=== PATIENT | female | born 1960 | race Caucasian/White ===

== ENCOUNTER 2017-12-24 08:42 | Day surgery (SDC) | payer BC ==
[~2017-12-24 08:42] MED LIST: Lactated Ringers 1,000 ML IV SCH; Sodium Chloride 0.9% 10 ML Syringe FLUSH PRN; Sodium Chloride 0.9% 2.5 ML Syringe FLUSH PRN
--- NOTE | 2017-12-24 09:52 | PCM.PREANE ---
Preanesthetic Assessment - Anesthesia/Transfusion/Family Hx Anesthesia History: Prior Anesthesia Without Reaction Family History of Anesthesia Reaction: No Transfusion History: No Prior Transfusion(s) Intubation History: Unknown - Review of Systems General: No Symptoms Pulmonary: No Symptoms Cardiovascular: No Symptoms Gastrointestinal: No Symptoms Neurological: No Symptoms Other: Reports: None - Physical Assessment O2 Sat by Pulse Oximetry: 99 Respiratory Rate: 16 Vital Signs: Last Vital Signs Temp 36.4 C 12/24/17 09:46 Pulse 74 12/24/17 09:46 Resp 16 12/24/17 09:46 BP 131/93 H 12/24/17 09:46 Pulse Ox 99 12/24/17 09:46 Height: 1.8 m Weight: 97.069 kg ASA Class: 2 Mental Status: Alert & Oriented x3 Airway Class: Mallampati = 2 Dentition: Reports: Normal Dentition Thyro-Mental Finger Breadths: 3 Mouth Opening Finger Breadths: 3 ROM/Head Extension: Full Lungs: Clear to Auscultation, Normal Respiratory Effort Cardiovascular: Regular Rate, Regular Rhythm - Allergies Allergies/Adverse Reactions: Allergies Allergy/AdvReac Type Severity Reaction Status Date / Time No Known Allergies Allergy Verified 12/20/17 10:36 - Blood Blood Available: No - Anesthesia Plan Pre-Op Medication Ordered: None - Acknowledgements Anesthesia Type Planned: General Anesthesia Pt an Appropriate Candidate for the Planned Anesthesia: Yes Alternatives and Risks of Anesthesia Discussed w Pt/Guardian: Yes Pt/Guardian Understands and Agrees with Anesthesia Plan: Yes PreAnesthesia Questionnaire Other HEENT History: wears glasses/contacts Cardiovascular History: Reports: Hypertension, Other (See Below) (h/o palpitations, varicose veins) Gastrointestinal History: Reports: Chronic Constipation, GERD, Other (See Below ) (h/o fatty liver before gastric sleeve surgery and loss of weight) 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: Endocrine/Metabolic History: Reports: Hypothyroidism, Other (See Below) (h/o hypoglycemic episodes) - Past Surgical History HEENT Surgical History: Reports: Oral Surgery Other HEENT Surgeries/Procedures: wisdom teeth Cardiovascular Surgical History: Reports: Varicose GI Surgical History: Reports: Bariatric Procedure Female Surgical History: Reports: Breast Biopsy, Tubal Ligation Endocrine Surgical History: Reports: Thyroidectomy - SUBSTANCE USE Smoking Status *Q: Never Smoker Second Hand Smoke Exposure: No Recreational Drug Use History: No - HOME MEDS Home Medications: Home Meds amLODIPine [Norvasc] 5 mg PO BEDTIME 07/08/15 [History] Cholecalciferol (Vitamin D3) [Vitamin D3] 1,000 unit PO DAILY 12/20/17 [History] Cyanocobalamin (Vitamin B12) [Vitamin B12] 1,000 mcg PO DAILY 12/20/17 [History] Iron 1 tab PO DAILY 12/20/17 [History] Levothyroxine Sodium [Synthroid] 150 mcg PO QAM 12/20/17 [History] Magnesium 1 tab PO DAILY 12/20/17 [History] Multivitamin [Multiple Vitamins] 1 tab PO DAILY 12/20/17 [History] Potassium 2 tab PO BID 12/20/17 [History] Vitamin B6-pyridOXINE [Vitamin B6] 25 mg PO DAILY 12/20/17 [History] - CURRENT (IN HOUSE) MEDS Current Meds: Current Medications Lactated Ringer's (Ringers, Lactated) 1,000 mls @ 125 mls/hr IV ASDIRECTED NELLIE Last Admin: 12/24/17 09:25 Dose: 125 mls/hr Sodium Chloride (Saline Flush) 10 ml FLUSH ASDIRECTED PRN PRN Reason: Keep Vein Open Sodium Chloride (Saline Flush) 2.5 ml FLUSH ASDIRECTED PRN PRN Reason: Keep Vein Open
[2017-12-24] MEDS ORDERED: Propofol 200 MG/20 ML SDV ONE ×2 (11:31→12:58)
[2017-12-24] MEDS ORDERED: Midazolam 1 MG/ML 2 ML SDV ONE (11:31)
[2017-12-24] MEDS ORDERED: fentaNYL 100 MCG/2 ML SDV ONE ×2 (11:33→13:18)
[2017-12-24] MEDS ORDERED: Dexamethasone 4 MG/ML 5 ML MDV ONE (12:57)
[2017-12-24] MEDS ORDERED: Ondansetron 4 MG/2 ML SDV ONE (12:57)
[2017-12-24] MEDS ORDERED: diphenhydrAMINE 50 MG/ML SDV ONE (12:57)
--- NOTE | 2017-12-24 13:56 | PCM.OPNOTE ---
- General Post-Op/Procedure Note Date of Surgery/Procedure: 12/24/17 Operative Procedure(s): Hysteroscopy,polypectomy with Dilataion and curettage Findings: Endometrial polyp located at the fundus. Thin endometrial lining otherwise Pre Op Diagnosis: Postmenopausal bleeding. Endometrial polyp Post-Op Diagnosis: Same Anesthesia Technique: General ET Tube Primary Surgeon: Ann Gonzalez EBL in mLs: 10 Complications: None Condition: Good
--- NOTE | 2017-12-24 13:59 | PCM.POSTAN ---
POST ANESTHESIA ASSESSMENT - MENTAL STATUS Mental Status: Alert, Oriented - RESPIRATORY Respiratory Status: Respiratory Rate WNL, Airway Patent, O2 Saturation Stable - CARDIOVASCULAR CV Status: Pulse Rate WNL, Blood Pressure Stable - GASTROINTESTINAL GI Status: No Symptoms - PAIN Pain Score: 2 - POST OP HYDRATION Hydration Status: Adequate & Stable
--- NOTE | 2017-12-24 14:54 | PCM48HPAN ---
Post Anesthesia Note - EVALUATION WITHIN 48HRS OF ANESTHETIC Vital Signs in Normal Range: Yes Patient Participated in Evaluation: Yes Respiratory Function Stable: Yes Airway Patent: Yes Cardiovascular Function Stable: Yes Hydration Status Stable: Yes Pain Control Satisfactory: Yes Nausea and Vomiting Control Satisfactory: Yes Mental Status Recovered: Yes Resp Rate: 14 - COMMENTS/OBSERVATIONS Free Text/Narrative:: Pt still groggy, but awake and answering questions. No pain or nausea noted at this time.
[2017-12-24 14:59] VITALS: BP 118/70
--- NOTE | 2017-12-25 00:31 | OR ---
SURGEON: Ann Gonzalez MD DATE OF PROCEDURE: 12/24/2017 PREOPERATIVE DIAGNOSES: 1. Postmenopausal bleeding. 2. Endometrial polyp. POSTOPERATIVE DIAGNOSES: 1. Postmenopausal bleeding. 2. Endometrial polyp. ANESTHESIA: General endotracheal. ESTIMATED BLOOD LOSS: Minimal. COMPLICATIONS: None. DISPOSITION: Stable to recovery room. PATHOLOGY: Endometrial polyp Endometrial curettings Endocervical curettings. FINDINGS: Mobile anteverted uterus, sounded to 7 cm. No cervical lesions and n adnexal masses palpable. Hysteroscopic findings revealed a solitary fundal endometrial polyp. The endometrium was otherwise atrophic in appearance. Both fallopian tube ostia were visualized. BRIEF HISTORY: The patient is a 57-year-old lady, who presented with postmenopausal bleeding. Sonohysterogram showed an endometrial polyp and office endometrial biopsy, though scanty was benign.I reviewed the sonohysterogram findings with the patient and recommended to proceed with a hysteroscopy with polypectomy. The patient accepted the recommendation. Risks of the procedure were discussed with the patient in details including, but not limited to bleeding, infection, injury to the uterus, cervix, and the surrounding organs. She accepted and signed an appropriate consent. DESCRIPTION OF PROCEDURE: The patient was taken to the operating room, where she underwent induction of general anesthesia without difficulty. After adequate level of anesthesia, she was placed in dorsal lithotomy position, prepped and draped in the usual sterile fashion for vaginal procedure. The bladder was emptied. Time-out was held. Examination under anesthesia revealed the aforementioned findings. A bivalve speculum was placed in the vagina and anterior lip of the cervix was grabbed with an Allis clamp. The uterine cavity was sounded to a depth of 7 cm. ECC was performed and the sample was collected with the Cytobrush. The cervical os was then dilated serially up to a #6 Hegar dilator and a 6.5 mm MyoSure. Operative hysteroscope was inserted into the uterine cavity under direct visualization using normal saline as a distention media. Upon entering the uterine cavity, the aforementioned pathology was noted. The outflow channel of the MyoSure device was then removed under direct visualization and the MyoSure tissue retrieval device was placed through this channel. The retrieval device was then aligned along the polyp, activated and the polyp was resected easily and completely. Survey of the uterine cavity post resection reveals no uterine wall injury. The MyoSure was then removed from the cavity. Gentle endometrial curetting was then performed. Once this was completed, all the instruments were then removed from the patient's vagina and the area in the cervix on which the Allis clamp was placed was found to be hemostatic. All sponge and instrument counts were correct. Input and output of the normal saline were [facility]. Please refer to the nursing chart for accurate measurement. The patient was taken to the recovery room in stable condition. DEEDEE / ELEUTERIO /[id number] MTDD
== END 2017-12-24 15:21 | disposition home or self-care (01) ==
LOC: MW.SDS 08:42
PROVIDERS: ATTEND Obstetrics & Gynecology
DX: N84.0 Polyp of corpus uteri (principal); I10 Essential (primary) hypertension; E03.9 Hypothyroidism, unspecified; Z79.899 Other long term (current) drug therapy; Z98.84 Bariatric surgery status
CPT/HCPCS: 36415; 58558; 85027; 86850; 86900; 86901; J1100; J1200; J2250; J2405; J3010; J7120; 00952; 88305; J2704

== ENCOUNTER 2020-03-20 19:19 | Emergency (ER) | payer BC ==
[2020-03-20 19:44] VITALS: PULSE 78
[2020-03-20] MEDS ORDERED: Acetaminophen 500 MG Tab PO ONE (19:48)
[2020-03-20] MEDS ORDERED: Ibuprofen 400 MG Tab PO ONE (19:48)
--- NOTE | 2020-03-20 19:51 | EDM.PDOC ---
ED HPI GENERAL MEDICAL PROBLEM - General Chief Complaint: Genitourinary Problem Stated Complaint: POSSIBLE UTI Time Seen by Provider: 03/20/20 19:20 Source of Information: Reports: Patient History Limitations: Reports: No Limitations - History of Present Illness INITIAL COMMENTS - FREE TEXT/NARRATIVE: 59-year-old female with a past medical history of hypertension and hypothyroidism presenting with dysuria. 2-day history of dysuria, urinary frequency, incomplete voiding, and right flank pain. Symptoms similar to prior UTIs but she does not typically have flank pain with them. Right flank pain is constant, nonradiating, nothing makes it better or worse, described as "sharp". Right Flank Pain Score (Numeric/FACES): 7 - Related Data Allergies Allergy/AdvReac Type Severity Reaction Status Date / Time No Known Allergies Allergy Verified 03/20/20 19:38 Home Meds: Home Meds amLODIPine [Norvasc] 5 mg PO BEDTIME 07/08/15 [History] Multivitamin [Multiple Vitamins] 1 tab PO DAILY 12/20/17 [History] Levothyroxine Sodium [Synthroid] 137 mcg PO DAILY 03/20/20 [History] cephALEXin [Keflex] 500 mg PO QID 14 Days #56 capsule 03/20/20 [Rx] Past Medical History Other HEENT History: wears glasses/contacts Cardiovascular History: Reports: Hypertension, Other (See Below) (h/o palpitations, varicose veins) Gastrointestinal History: Reports: Chronic Constipation, GERD, Other (See Below ) (h/o fatty liver before gastric sleeve surgery and loss of weight) 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: Endocrine/Metabolic History: Reports: Hypothyroidism, Other (See Below) (h/o hypoglycemic episodes) - Past Surgical History HEENT Surgical History: Reports: Oral Surgery Other HEENT Surgeries/Procedures: wisdom teeth Cardiovascular Surgical History: Reports: Varicose GI Surgical History: Reports: Bariatric Procedure Female Surgical History: Reports: Breast Biopsy, Tubal Ligation Endocrine Surgical History: Reports: Thyroidectomy Social & Family History - Family History Family Medical History: Noncontributory ED ROS GENERAL - Review of Systems Review Of Systems: See Below Constitutional: Reports: No Symptoms. Denies: Fever, Chills HEENT: Reports: No Symptoms Respiratory: Reports: No Symptoms. Denies: Shortness of Breath Cardiovascular: Reports: No Symptoms. Denies: Chest Pain Endocrine: Reports: No Symptoms. Denies: Polyuria GI/Abdominal: Reports: No Symptoms. Denies: Abdominal Pain, Nausea, Vomiting : Reports: No Symptoms, Dysuria, Flank Pain, Frequency, Pain, Urgency Musculoskeletal: Reports: No Symptoms. Denies: Back Pain Skin: Reports: No Symptoms. Denies: Rash Neurological: Reports: No Symptoms. Denies: Headache Psychiatric: Reports: No Symptoms Hematologic/Lymphatic: Reports: No Symptoms Immunologic: Reports: No Symptoms ED EXAM, RENAL/ - Physical Exam Exam: See Below Text/Narrative:: Vital signs reviewed. Nursing notes reviewed. Constitutional: Awake, alert, non-distressed. Head: Normocephalic, atraumatic. Eyes: EOMI, conjunctiva normal, no discharge, no scleral icterus. Ears, Nose, Throat: External ears and ears normal, moist oral mucosa. Cardiovascular: 2+ radial pulse, capillary refill less than 2 seconds. Pulmonary: normal work of breathing, no accessory muscle use. Abdomen/GI: Soft, nontender, nondistended, no guarding or rigidity, no masses. No CVA tenderness. Musculoskeletal: No deformities. Integumentary: Appropriate color for ethnicity, warm, dry, no pallor or jaundice , no rash. Neurologic: Alert, answering questions appropriately, normal speech, no facial droop, moving all extremities well. Psychiatric: Appropriate mood and affect, normal thought process. Course - Vital Signs Text/Narrative:: 59-year-old female past medical history of hypertension and hypothyroidism presenting with dysuria. Patient hemodynamically stable, afebrile, well- appearing, looks nontoxic. Differential diagnosis includes but is not limited to: UTI, pyelonephritis, kidney stone, acute hepatitis, cholecystitis, biliary colic, cholangitis, mesenteric ischemia, bowel obstruction, perforation, ileus, epiploic appendagitis, AAA, musculoskeletal strain/sprain, zoster, etc. 2038: CBC shows normal cell lines. Electrolytes and renal function unremarkable. LFTs show mild alkaline phosphatase elevation, normal AST and ALT. Urinalysis appears infected with positive nitrites, moderate leukocyte esterase, large blood. Urine culture ordered. Awaiting CT abdomen/pelvis. 2124: Resting comfortably, declines any analgesic pain medications. Awaiting radiology read of CT scan. Anticipate discharge home with treatment for pyelonephritis. 2205: CT abdomen/pelvis report just returned, no acute findings noted by radiologist. No evidence of kidney stone, hydronephrosis, appendicitis, or any other intra-abdominal abnormality. Patient is stable to discharge home with outpatient primary care follow-up. 10- day course of cephalexin will be prescribed. Strict emergency department return precautions were provided, patient indicated understanding. All questions were answered prior to departure. Discharged in good condition. Last Recorded V/S: Last Vital Signs Temp 36.2 C 03/20/20 22:00 Pulse 78 03/20/20 22:00 Resp 17 03/20/20 22:00 BP 150/101 H 03/20/20 22:00 Pulse Ox 98 03/20/20 22:00 - Orders/Labs/Meds Orders: Active Orders 24 hr Category Date Time Status CULTURE URINE [RM] Stat Lab 03/20/20 19:40 Received Labs: Laboratory Tests 03/20/20 03/20/20 03/20/20 Range/Units 19:40 19:40 20:01 WBC 6.49 (4.0-11.0) K/uL RBC 5.04 (4.30-5.90) M/uL Hgb 14.1 (12.0-16.0) g/dL Hct 43.1 (36.0-46.0) % MCV 85.5 (80.0-98.0) fL MCH 28.0 (27.0-32.0) pg MCHC 32.7 (31.0-37.0) g/dL RDW Std Deviation 39.1 (28.0-62.0) fl RDW Coeff of Melchor 13 (11.0-15.0) % Plt Count 184 (150-400) K/uL MPV 10.30 (7.40-12.00) fL Neut % (Auto) 63.1 (48.0-80.0) % Lymph % (Auto) 20.2 (16.0-40.0) % [place] % (Auto) 7.9 (0.0-15.0) % Eos % (Auto) 8.5 H (0.0-7.0) % Baso % (Auto) 0.3 (0.0-1.5) % Neut # (Auto) 4.1 (1.4-5.7) K/uL Lymph # (Auto) 1.3 (0.6-2.4) K/uL [place] # (Auto) 0.5 (0.0-0.8) K/uL Eos # (Auto) 0.6 (0.0-0.7) K/uL Baso # (Auto) 0.0 (0.0-0.1) K/uL Nucleated RBC % 0.0 /100WBC Nucleated RBCs # 0 K/uL Sodium (136-145) mmol/L Potassium (3.5-5.1) mmol/L Chloride (98-107) mmol/L Carbon Dioxide (21.0-32.0) mmol/L BUN (7.0-18.0) mg/dL Creatinine (0.6-1.0) mg/dL Est Cr Clr Drug Dosing Estimated GFR (MDRD) ml/min Glucose (74-106) mg/dL Calcium (8.5-10.1) mg/dL Total Bilirubin (0.2-1.0) mg/dL AST (15-37) IU/L ALT (14-63) IU/L Alkaline Phosphatase (46-116) U/L Total Protein (6.4-8.2) g/dL Albumin (3.4-5.0) g/dL Globulin (2.6-4.0) g/dL Albumin/Globulin Ratio (0.9-1.6) Urine Color YELLOW Urine Appearance CLOUDY Urine pH 7.0 (5.0-8.0) Ur Specific [place] 1.025 (1.001-1.035) Urine Protein 100 H (NEGATIVE) mg/dL Urine Glucose (UA) NEGATIVE (NEGATIVE) mg/dL Urine Ketones NEGATIVE (NEGATIVE) mg/dL Urine Occult Blood LARGE H (NEGATIVE) Urine Nitrite POSITIVE H (NEGATIVE) Urine Bilirubin NEGATIVE (NEGATIVE) Urine Urobilinogen 0.2 (<2.0) EU/dL Ur Leukocyte Esterase MODERATE H (NEGATIVE) Urine RBC 45-50 (0-2/HPF) Urine WBC 110-120 (0-5/HPF) Ur Epithelial Cells FEW (NONE-FEW) Urine Bacteria FEW (NEGATIVE) Urine HCG, Qual NEGATIVE (NEGATIVE) 03/20/20 Range/Units 20:01 WBC (4.0-11.0) K/uL RBC (4.30-5.90) M/uL Hgb (12.0-16.0) g/dL Hct (36.0-46.0) % MCV (80.0-98.0) fL MCH (27.0-32.0) pg MCHC (31.0-37.0) g/dL RDW Std Deviation (28.0-62.0) fl RDW Coeff of Melchor (11.0-15.0) % Plt Count (150-400) K/uL MPV (7.40-12.00) fL Neut % (Auto) (48.0-80.0) % Lymph % (Auto) (16.0-40.0) % [place] % (Auto) (0.0-15.0) % Eos % (Auto) (0.0-7.0) % Baso % (Auto) (0.0-1.5) % Neut # (Auto) (1.4-5.7) K/uL Lymph # (Auto) (0.6-2.4) K/uL [place] # (Auto) (0.0-0.8) K/uL Eos # (Auto) (0.0-0.7) K/uL Baso # (Auto) (0.0-0.1) K/uL Nucleated RBC % /100WBC Nucleated RBCs # K/uL Sodium 141 (136-145) mmol/L Potassium 4.0 (3.5-5.1) mmol/L Chloride 103 (98-107) mmol/L Carbon Dioxide 28.6 (21.0-32.0) mmol/L BUN 11 (7.0-18.0) mg/dL Creatinine 0.8 (0.6-1.0) mg/dL Est Cr Clr Drug Dosing TNP Estimated GFR (MDRD) > 60.0 ml/min Glucose 103 (74-106) mg/dL Calcium 8.8 (8.5-10.1) mg/dL Total Bilirubin 0.2 (0.2-1.0) mg/dL AST 22 (15-37) IU/L ALT 23 (14-63) IU/L Alkaline Phosphatase 136 H (46-116) U/L Total Protein 7.4 (6.4-8.2) g/dL Albumin 4.1 (3.4-5.0) g/dL Globulin 3.3 (2.6-4.0) g/dL Albumin/Globulin Ratio 1.2 (0.9-1.6) Urine Color Urine Appearance Urine pH (5.0-8.0) Ur Specific [place] (1.001-1.035) Urine Protein (NEGATIVE) mg/dL Urine Glucose (UA) (NEGATIVE) mg/dL Urine Ketones (NEGATIVE) mg/dL Urine Occult Blood (NEGATIVE) Urine Nitrite (NEGATIVE) Urine Bilirubin (NEGATIVE) Urine Urobilinogen (<2.0) EU/dL Ur Leukocyte Esterase (NEGATIVE) Urine RBC (0-2/HPF) Urine WBC (0-5/HPF) Ur Epithelial Cells (NONE-FEW) Urine Bacteria (NEGATIVE) Urine HCG, Qual (NEGATIVE) Meds: Medications Discontinued Medications Generic Name Dose Route Start Last Admin Trade Name Freq PRN Reason Stop Dose Admin Acetaminophen 1,000 mg 03/20/20 19:48 03/20/20 20:08 Tylenol Extra Strength PO 03/20/20 19:49 Not Given ONETIME ONE Ibuprofen 400 mg 03/20/20 19:48 03/20/20 20:07 Motrin PO 03/20/20 19:49 Not Given ONETIME ONE Iopamidol 100 ml 03/20/20 20:56 03/20/20 20:57 Isovue-370 (76%) IVPUSH 03/20/20 20:57 100 ml ONETIME ONE Administration Departure - Departure Time of Disposition: 22:07 Disposition: Home, Self-Care 01 Condition: Good Clinical Impression: Pyelonephritis - Discharge Information *PRESCRIPTION DRUG MONITORING PROGRAM REVIEWED*: Not Applicable *COPY OF PRESCRIPTION DRUG MONITORING REPORT IN PATIENT CAROL: Not Applicable Prescriptions: cephALEXin [Keflex] 500 mg PO QID 14 Days #56 capsule Instructions: Pyelonephritis, Adult Referrals: Kim Carroll DO [Primary Care Provider] - 1 Week (For follow-up of your infection) Forms: ED Department Discharge Additional Instructions: Please take all of your antibiotic medication as prescribed, even if you are feeling better - be sure you finish the entire bottle. You can take over-the- counter Tylenol or Motrin for pain. Follow-up with your doctor in the next week. Return to the emergency department immediately if you develop a fever ( temperature 100.4 or higher), chills, vomiting, severe pain, or if any other symptoms develop that are concerning to you. The following information is given to patients seen in the emergency department who are being discharged to home. This information is to outline your options for follow-up care. We provide all patients seen in our emergency department with a follow-up referral. The need for follow-up, as well as the timing and circumstances, are variable depending upon the specifics of your emergency department visit. If you don't have a primary care physician on staff, we will provide you with a referral. We always advise you to contact your personal physician following an emergency department visit to inform them of the circumstance of the visit and for follow-up with them and/or the need for any referrals to a consulting specialist. The emergency department will also refer you to a specialist when appropriate. This referral assures that you have the opportunity for follow-up care with a specialist. All of these measure are taken in an effort to provide you with optimal care, which includes your follow-up. Under all circumstances we always encourage you to contact your private physician who remains a resource for coordinating your care. When calling for follow-up care, please make the office aware that this follow-up is from your recent emergency room visit. If for any reason you are refused follow-up, please contact the [facility] Emergency Department at and asked to speak to the emergency department charge nurse. If you do not have a primary care physician that is caring for you, you can contact these clinics below to set up an appointment to establish care: [facility] - Primary Care [address] [place] [id number] [facility] [address] [place] [id number] Sepsis Event Note - Evaluation Sepsis Screening Result: No Definite Risk - Focused Exam Vital Signs: Vital Signs Temp Pulse Resp BP Pulse Ox 03/20/20 22:00 36.2 C 78 17 150/101 H 98 03/20/20 19:43 36.4 C 78 20 160/107 H 98 Date Exam was Performed: 03/20/20 Time Exam was Performed: 22:06 - My Orders Last 24 Hours: My Active Orders 03/20/20 19:40 CULTURE URINE [RM] Stat - Assessment/Plan Last 24 Hours: My Active Orders 03/20/20 19:40 CULTURE URINE [] Stat
[2020-03-20 20:26] LABS: BLOOD UREA NITROGEN,BUN 11 mg/dL (7.0-18.0); CARBON DIOXIDE,CO2 28.6 mmol/L (21.0-32.0); CHLORIDE,CL 103 mmol/L (98-107); GLUCOSE RANDOM 103 mg/dL (74-106); SODIUM,NA 141 mmol/L (136-145)
[2020-03-20] MEDS ORDERED: Iopamidol 755 Mg/ML 100 ML Bottle IVPUSH ONE (20:56)
--- NOTE | 2020-03-20 22:02 | CT ---
CT abdomen and pelvis Technique: Multiple axial sections were obtained from above the dome of the diaphragm inferiorly through the pubic symphysis. Intravenous contrast was utilized. No oral contrast has been given. Findings: Visualized lung bases show nothing acute. Liver shows no focal parenchymal abnormality. Spleen size is normal. Adrenal glands show no nodule. Small hiatal hernia is noted. Kidneys show symmetric contrast enhancement. No abnormal calcifications are seen within the kidneys. No ureteral dilatation or ureteral calcification is seen. Aorta shows no aneurysm. No retroperitoneal adenopathy is seen. No mesenteric abnormalities are seen. Appendix is seen which is normal in size. Uterus shows fibroid change. No additional pelvic abnormality is seen. No free fluid or inflammatory change is appreciated. Bone window settings were reviewed which shows mild degenerative apophyseal change within the lower lumbar spine with mild scattered endplate osteophytes throughout the lower thoracic and lumbar spine. Impression: 1. Fibroid change within the uterus. 2. No renal calculi, ureteral dilatation or ureteral stone is seen. 3. Nothing acute is appreciated on CT study of the abdomen and pelvis. Diagnostic code #2 This report was dictated in MDT
[2020-03-20 22:06] VITALS: BP 150/101
== END 2020-03-20 22:13 | disposition home or self-care (01) ==
LOC: MW.ED 19:19
DX: N12 Tubulo-interstitial nephritis, not specified as acute or chronic (principal); I10 Essential (primary) hypertension; E03.9 Hypothyroidism, unspecified; Z79.899 Other long term (current) drug therapy
CPT/HCPCS: 36415; 74177; 80053; 81001; 81025; 85025; 87086; 87088; 87186; 99284; Q9967

== ENCOUNTER 2021-05-07 13:01 | Emergency (ER) | payer BC ==
[2021-05-07] MEDS ORDERED: Sodium Chloride 0.9% 1,000 ML IV ONE (13:29)
--- NOTE | 2021-05-07 13:51 | EDM.PDOC ---
ED HPI GENERAL MEDICAL PROBLEM - General Chief Complaint: General Stated Complaint: DEHYDRATED/DIZZY/WEAK Time Seen by Provider: 05/07/21 13:41 Source of Information: Reports: Patient History Limitations: Reports: No Limitations - History of Present Illness INITIAL COMMENTS - FREE TEXT/NARRATIVE: HISTORY AND PHYSICAL: History of present illness: Patient is a 60-year-old female who presents to the emergency room with complaints of dizziness and concerns of dehydration. She states yesterday she was out in the heat at a festival and did not feel she drank enough water. This morning she had attended [employer] and on her way to work she started to feel dizzy and run down. She states "I have heatstroke... I'm from [place], I know what its like". Patient denies any fever, chills, headache, change in vision, syncope or near syncope. Denies any chest pain, back pain, shortness of breath or cough. Denies any abdominal pain, nausea, vomiting, diarrhea, constipation or dysuria. Has not noted any blood in urine or stool. Patient has been eating and drinking appropriately. Review of systems: As per history of present illness and below otherwise all systems reviewed and negative. Past medical history: As per history of present illness and as reviewed below otherwise noncontributory. Surgical history: As per history of present illness and as reviewed below otherwise noncontributory. Social history: See social history for further information Family history: As per history of present illness and as reviewed below otherwise noncontributory. Physical exam: General: Well developed and well nourished 60 year old black female . Alert and orientated x 3. Nontoxic in appearance and in no acute distress. Vital signs are stable and have been reviewed by me. Nursing notes were reviewed. HEENT: Atraumatic, normocephalic, pupils equal and reactive bilaterally, negative for conjunctival pallor or scleral icterus, mucous membranes moist, TMs normal bilaterally, throat clear, neck supple, nontender, trachea midline. No drooling or trismus noted. No meningeal signs. No hot potato voice noted. Lungs: Clear to auscultation bilaterally. No wheezes, rales, or rhonchi. Chest nontender. Normal work of breathing, no accessory muscles used. Heart: S1S2, regular rate and rhythm without overt murmur, gallops, or rubs. No JVD. No peripheral edema Abdomen: Soft, nondistended, nontender. Normoactive bowel sounds. Negative for masses or costovertebral tenderness. Skin: Intact, warm, dry. No lesions or rashes noted. Hematologic: No petechiae or purpra. Mucosa appropriate color and normal nail bed color and refill. Extremities: Atraumatic, moves all extremities per self without difficulty or deficits, negative for cords or calf pain. Neurovascular unremarkable. Neuro: Awake, alert, oriented. Cranial nerves II through XII unremarkable. Cerebellum unremarkable. Motor and sensory unremarkable throughout. Exam nonfocal. Psychiatric: Mood and affect are appropriate. Normal thought process. Answering questions appropriately. Notes: *This patient was seen and evaluated during the 2019 SARS-CoV-2 novel coronavirus pandemic period. Community viral transmission is ongoing at time of this encounter and the emergency department is operating under pandemic response procedures. Patient is a 60-year-old female who presents to the emergency room with concerns of heatstroke and dehydration. Her physical exam is unremarkable. Patient is agreeable to basic lab work, IV fluids and monitoring while waiting. Lab work is unremarkable. Her vital signs have improved. Patient states she feels much better and would like to be discharged home. I have talked with the patient about today's findings, in addition to providing specific details for plan of care. Reassessment at the time of disposition demonstrates that the patient is in no acute distress. The patient is stable for discharge, counseling was provided and we discussed in great detail signs and symptoms that would prompt them to return to the Emergency Department. Medication, follow up and supportive care measures were reviewed and discussed. Voices understanding and is agreeable to plan of care. Denies any further questions or concerns at this time. Diagnostics: CBC, CMP, Troponin, EKG, UA Therapeutics: IV fluids Prescription: None Impression: Dizziness Plan: 1. You were evaluated today on an emergent basis. Your lab work and EKG are normal. Please take it easy the rest of day. Small frequent meals, increase your oral fluids. 2. You can alternate Tylenol and ibuprofen as needed for pain and fever management. 3. We encourage you to follow up with your primary care provider and/or recommended specialist in the next few days for re-evaluation and further care/management. 4. If your symptoms should worsen, new symptoms develop or any of the signs and symptoms we discussed should arise please return to the emergency room or call 911 (if needed). Definitive disposition and diagnosis as appropriate pending reevaluation and review of above. - Related Data Allergies Allergy/AdvReac Type Severity Reaction Status Date / Time No Known Allergies Allergy Verified 05/07/21 13:10 Home Meds: Home Meds amLODIPine [Norvasc] 5 mg PO BEDTIME 07/08/15 [History] Levothyroxine Sodium [Synthroid] 137 mcg PO DAILY 03/20/20 [History] Past Medical History Other HEENT History: wears glasses/contacts Cardiovascular History: Reports: Hypertension, Other (See Below) Gastrointestinal History: Reports: Chronic Constipation, GERD, Other (See Below) [employer] History: Reports: Endocrine/Metabolic History: Reports: Hypothyroidism, Other (See Below) Hematologic History: Reports: None Immunologic History: Reports: None Oncologic (Cancer) History: Reports: None - Infectious Disease History Infectious Disease History: Reports: Mumps - Past Surgical History HEENT Surgical History: Reports: Oral Surgery Other HEENT Surgeries/Procedures: wisdom teeth Cardiovascular Surgical History: Reports: Varicose GI Surgical History: Reports: Bariatric Procedure Other GI Surgeries/Procedures: gastric sleeve , thyroidectomy Female Surgical History: Reports: Breast Biopsy, Tubal Ligation Endocrine Surgical History: Reports: Thyroidectomy Social & Family History - Family History Family Medical History: No Pertinent Family History - Tobacco Use Tobacco Use Status *Q: Never Tobacco User - Caffeine Use Caffeine Use: Reports: None - Recreational Drug Use Recreational Drug Use: No ED ROS GENERAL - Review of Systems Review Of Systems: Comprehensive ROS is negative, except as noted in HPI. ED EXAM, GENERAL - Physical Exam Exam: See Below (See dictation) Course - Vital Signs Last Recorded V/S: Last Vital Signs Temp 98 F 05/07/21 13:11 Pulse 61 05/07/21 14:41 Resp 14 05/07/21 14:41 BP 136/90 05/07/21 14:41 Pulse Ox 99 05/07/21 14:41 - Orders/Labs/Meds Orders: Active Orders 24 hr Category Date Time Status EKG Documentation Completion [RC] STAT Care 05/07/21 13:29 Active CULTURE URINE [MREF] Stat Lab 05/07/21 13:45 Received Labs: Laboratory Tests 05/07/21 05/07/21 05/07/21 Range/Units 13:40 13:40 13:45 WBC 3.40 L (4.0-11.0) K/uL RBC 4.71 (4.30-5.90) M/uL Hgb 13.0 (12.0-16.0) g/dL Hct 39.9 (36.0-46.0) % MCV 84.7 (80.0-98.0) fL MCH 27.6 (27.0-32.0) pg MCHC 32.6 (31.0-37.0) g/dL RDW Std Deviation 38.7 (28.0-62.0) fl RDW Coeff of Melchor 13 (11.0-15.0) % Plt Count 182 (150-400) K/uL MPV 10.80 (7.40-12.00) fL Neut % (Auto) 48.0 (48.0-80.0) % Lymph % (Auto) 40.0 (16.0-40.0) % [place] % (Auto) 7.6 (0.0-15.0) % Eos % (Auto) 4.1 (0.0-7.0) % Baso % (Auto) 0.3 (0.0-1.5) % Neut # (Auto) 1.6 (1.4-5.7) K/uL Lymph # (Auto) 1.4 (0.6-2.4) K/uL [place] # (Auto) 0.3 (0.0-0.8) K/uL Eos # (Auto) 0.1 (0.0-0.7) K/uL Baso # (Auto) 0.0 (0.0-0.1) K/uL Nucleated RBC % 0.0 /100WBC Nucleated RBCs # 0 K/uL Sodium 142 (136-145) mmol/L Potassium 3.8 (3.5-5.1) mmol/L Chloride 107 (98-107) mmol/L Carbon Dioxide 24.0 (21.0-32.0) mmol/L BUN 9 (7.0-18.0) mg/dL Creatinine 0.8 (0.6-1.0) mg/dL Est Cr Clr Drug Dosing 81.88 mL/min Estimated GFR (MDRD) > 60.0 ml/min Glucose 93 (74-106) mg/dL Calcium 9.0 (8.5-10.1) mg/dL Total Bilirubin 0.3 (0.2-1.0) mg/dL AST 16 (15-37) IU/L ALT 20 (14-63) IU/L Alkaline Phosphatase 108 (46-116) U/L Troponin I < 0.050 (0.000-0.056) ng/mL Total Protein 6.7 (6.4-8.2) g/dL Albumin 3.9 (3.4-5.0) g/dL Globulin 2.8 (2.6-4.0) g/dL Albumin/Globulin Ratio 1.4 (0.9-1.6) Urine Color YELLOW Urine Appearance CLEAR Urine pH 8.0 (5.0-8.0) Ur Specific [place] 1.015 (1.001-1.035) Urine Protein NEGATIVE (NEGATIVE) mg/dL Urine Glucose (UA) NEGATIVE (NEGATIVE) mg/dL Urine Ketones NEGATIVE (NEGATIVE) mg/dL Urine Occult Blood NEGATIVE (NEGATIVE) Urine Nitrite NEGATIVE (NEGATIVE) Urine Bilirubin NEGATIVE (NEGATIVE) Urine Urobilinogen 0.2 (<2.0) EU/dL Ur Leukocyte Esterase TRACE H (NEGATIVE) Urine RBC 0-1 (0-2/HPF) Urine WBC 0-2 (0-5/HPF) Ur Epithelial Cells OCCASIONAL (NONE-FEW) Urine Bacteria RARE (NEGATIVE) Meds: Medications Discontinued Medications Generic Name Dose Route Start Last Admin Trade Name Freq PRN Reason Stop Dose Admin Sodium Chloride 1,000 mls @ 999 mls/hr 05/07/21 13:29 05/07/21 13:48 Normal Saline IV 05/07/21 14:29 999 mls/hr STAT ONE Administration Departure - Departure Time of Disposition: 14:56 Disposition: Home, Self-Care 01 Clinical Impression: Dizziness - Discharge Information Instructions: Dizziness, [id number] Referrals: Kim Craroll DO [Primary Care Provider] - Forms: ED Department Discharge Additional Instructions: The following information is given to patients seen in the emergency department who are being discharged to home. This information is to outline your options for follow-up care. We provide all patients seen in our emergency department with a follow-up referral. The need for follow-up, as well as the timing and circumstances, are variable depending upon the specifics of your emergency department visit. If you don't have a primary care physician on staff, we will provide you with a referral. We always advise you to contact your personal physician following an emergency department visit to inform them of the circumstance of the visit and for follow-up with them and/or the need for any referrals to a consulting specialist. The emergency department will also refer you to a specialist when appropriate. This referral assures that you have the opportunity for follow-up care with a specialist. All of these measure are taken in an effort to provide you with optimal care, which includes your follow-up. Under all circumstances we always encourage you to contact your private physician who remains a resource for coordinating your care. When calling for follow-up care, please make the office aware that this follow-up is from your recent emergency room visit. If for any reason you are refused follow-up, please contact the [facility] Emergency Department at and asked to speak to the emergency department charge nurse. [facility] [address] [place] [id number] [place] [address] Thank you for choosing the [facility] emergency department in [place] for your medical needs today. It was a pleasure caring for you. Today you were seen in the emergency department for dizziness and heat exhaustion. 1. You were evaluated today on an emergent basis. Your lab work and EKG are normal. Please take it easy the rest of day. Small frequent meals and increase your oral fluids. 2. You can alternate Tylenol and ibuprofen as needed for pain and fever management. 3. We encourage you to follow up with your primary care provider and/or recommended specialist in the next few days for re-evaluation and further care/management. 4. If your symptoms should worsen, new symptoms develop or any of the signs and symptoms we discussed should arise please return to the emergency room or call 911 (if needed). Sepsis Event Note (ED) - Evaluation Sepsis Screening Result: No Definite Risk - Focused Exam Vital Signs: Vital Signs Temp Pulse Resp BP Pulse Ox 05/07/21 14:41 61 14 136/90 99 05/07/21 14:11 62 16 137/91 H 97 05/07/21 13:11 98 F 90 16 168/109 H 98 - My Orders Last 24 Hours: My Active Orders 05/07/21 13:29 EKG Documentation Completion [RC] STAT 05/07/21 13:45 CULTURE URINE [MREF] Stat - Assessment/Plan Last 24 Hours: My Active Orders 05/07/21 13:29 EKG Documentation Completion [RC] STAT 05/07/21 13:45 CULTURE URINE [MREF] Stat
[2021-05-07 14:15] LABS: BLOOD UREA NITROGEN,BUN 9 mg/dL (7.0-18.0); CHLORIDE,CL 107 mmol/L (98-107); GLUCOSE RANDOM 93 mg/dL (74-106); POTASSIUM,K 3.8 mmol/L (3.5-5.1); SODIUM,NA 142 mmol/L (136-145)
[2021-05-07 15:12] VITALS: BP 138/108; PULSE 63
--- NOTE | 2021-05-07 15:29 | PCM.EKG ---
#1 Interpretation EKG Date: 05/07/21 Time: 13:55 Rhythm: NSR Rate (Beats/Min): 67 ST-T: Normal
== END 2021-05-07 15:13 | disposition home or self-care (01) ==
LOC: MW.ED 13:01
DX: R42 Dizziness and giddiness (principal); I10 Essential (primary) hypertension; E03.9 Hypothyroidism, unspecified; Z79.899 Other long term (current) drug therapy
CPT/HCPCS: 36415; 80053; 81001; 84484; 85025; 87086; 93005; 99284; J7030

== ENCOUNTER 2022-04-07 11:31 | Emergency (ER) | payer BC ==
[2022-04-07 12:31] LABS: BLOOD UREA NITROGEN,BUN 12 mg/dL (7.0-18.0); CHLORIDE,CL 103 mmol/L (98-107); GLUCOSE RANDOM 101 mg/dL (74-106); POTASSIUM,K 3.8 mmol/L (3.5-5.1); SODIUM,NA 141 mmol/L (136-145)
[2022-04-07 12:39] LABS: ESTIMATED GFR > 60.0 ml/min
[2022-04-07] MEDS ORDERED: HYDROmorphone 1 MG/ML Syringe IVPUSH ONE (13:50)
[2022-04-07] MEDS ORDERED: Iopamidol 755 MG/ML 500 ML Multipack Bottle IVPUSH ONE (17:12)
[2022-04-07 17:37] VITALS: BP 152/96; PULSE 85
== END 2022-04-07 17:37 ==
LOC: MW.ED 11:31
DX: I63.9 Cerebral infarction, unspecified (principal); I10 Essential (primary) hypertension; E03.9 Hypothyroidism, unspecified; Z79.899 Other long term (current) drug therapy; Z20.822 Contact with and (suspected) exposure to COVID-19
CPT/HCPCS: 36415; 70450; 70496; 70498; 71045; 72125; 80053; 81001; 85025; 85610; 87635; 93005; 96374; 99285; J1170; Q9967; 93010; U0002

== ENCOUNTER 2023-01-03 09:25 | Emergency (ER) | payer BC ==
[2023-01-03 11:15] VITALS: BP 139/93; PULSE 73
== END 2023-01-03 12:20 | disposition home or self-care (01) ==
LOC: MW.ED 09:25
DX: S82.64XA Nondisplaced fracture of lateral malleolus of right fibula, initial encounter for closed fracture (principal); S89.92XA Unspecified injury of left lower leg, initial encounter; I10 Essential (primary) hypertension; E03.9 Hypothyroidism, unspecified; Z79.899 Other long term (current) drug therapy; W10.8XXA Fall (on) (from) other stairs and steps, initial encounter
CPT/HCPCS: 73562-26-LT; 73562-LT; 73610-26-RT; 73610-RT; 99283

== ENCOUNTER 2023-05-18 03:13 | Emergency (ER) | payer BC ==
[2023-05-18 03:38] LABS: BASOPHILS PERCENT AUTO 0.6 % (0.0-1.5); EOSINOPHILS ABSOLUTE AUTO 0.4 K/uL (0.0-0.7); EOSINOPHILS PERCENT AUTO 6.9 % (0.0-7.0); HEMATOCRIT 39.7 % (36.0-46.0); HEMOGLOBIN 13.2 g/dL (12.0-16.0); LYMPHOCYTES ABSOLUTE AUTO 1.5 K/uL (0.6-2.4); LYMPHOCYTES PERCENT AUTO 30.2 % (16.0-40.0); MEAN CORPUSCULAR HEMOGLOBIN 28.1 pg (27.0-32.0); MEAN CORPUSCULAR HGB CONC 33.2 g/dL (31.0-37.0); MEAN CORPUSCULAR VOLUME 84.5 fL (80.0-98.0); MONOCYTES ABSOLUTE AUTO 0.5 K/uL (0.0-0.8); MONOCYTES PERCENT AUTO 9.8 % (0.0-15.0); NEUTROPHILS ABSOLUTE AUTO 2.7 K/uL (1.4-5.7); NEUTROPHILS PERCENT AUTO 52.5 % (48.0-80.0); NRBC ABSOLUTE 0 K/uL; PLATELET COUNT,PLT 210 K/uL (150-400)
[2023-05-18] MEDS ORDERED: Prochlorperazine 10 MG/2 ML SDV IVPUSH ONE (03:51)
[2023-05-18] MEDS ORDERED: Dexamethasone 10 MG/ML SDV PO ONE (03:54)
[2023-05-18] MEDS ORDERED: Lactated Ringers 1,000 ML IV SCH (04:00)
[2023-05-18 04:09] LABS: A/G RATIO 1.3 (0.9-1.6); BILIRUBIN TOTAL 0.5 mg/dL (0.2-1.0); CALCIUM 9.5 mg/dL (8.5-10.1); CARBON DIOXIDE,CO2 27.6 mmol/L (21.0-32.0); CREATININE 0.9 mg/dL (0.6-1.0); EST CRCL DRUG DOSING (CG) 75.75 mL/min; PROTEIN TOTAL,TP 7.2 g/dL (6.4-8.2)
[2023-05-18] MEDS ORDERED: Iopamidol 755 MG/ML 500 ML Multipack Bottle IVPUSH ONE (04:34)
[2023-05-18 05:55] VITALS: BP 149/102; PULSE 85
== END 2023-05-18 06:00 | disposition home or self-care (01) ==
LOC: MW.ED 03:13
DX: R05.9 Cough, unspecified (principal); R51.9 Headache, unspecified; I10 Essential (primary) hypertension; E03.9 Hypothyroidism, unspecified; Z79.899 Other long term (current) drug therapy; Z98.890 Other specified postprocedural states; Z20.822 Contact with and (suspected) exposure to COVID-19
CPT/HCPCS: 36415; 70450; 70496; 70498; 71045; 80053; 84484; 85025; 87635; 93005; 96374; 99284; J0780; J7120; J8540; Q9967; 93010; U0002

== ENCOUNTER 2023-08-30 09:05 | Emergency (ER) | payer BC, OTHER ==
[2023-08-30 12:46] VITALS: BP 151/101; PULSE 81
== END 2023-08-30 11:30 | disposition home or self-care (01) ==
LOC: MW.ED 09:05
DX: S06.0XAA Concussion with loss of consciousness status unknown, initial encounter (principal); S12.600A Unspecified displaced fracture of seventh cervical vertebra, initial encounter for closed fracture; I10 Essential (primary) hypertension; E03.9 Hypothyroidism, unspecified; Z79.899 Other long term (current) drug therapy; W00.9XXA Unspecified fall due to ice and snow, initial encounter
CPT/HCPCS: 70450; 70450-26; 72125; 72125-26; 99283; 99284